=== PATIENT | male | born 1980 | race Two or more races ===

== ENCOUNTER 2023-01-13 16:18 | Inpatient (IN) | payer MEDICAID, OTHER ==
[~2023-01-13] VITALS: Ht 172.7 cm; Wt 104.0 kg
[2023-01-13] MEDS ORDERED: SODIUM CHLORIDE 0.9% 2,000 ML IV ONE (17:00)
[2023-01-13 18:35] LABS: BUN/Creatinine Ratio 11.5; Potassium 4.9 mmol/L (3.5-5.1)
[2023-01-13 18:38] LABS: Lactic Acid w/Reflex 4.1 mmol/L (0.4-2.0)
[2023-01-13 18:38] LABS: Bilirubin, Total 2.4 mg/dL (0.2-1.0); Total Protein 6.7 g/dL (6.4-8.2)
[2023-01-13 18:57] LABS: Hematocrit 46.8 % (41.0-53.0); Hemoglobin 15.4 g/dL (13.5-17.5); Mean Corpuscular Hemoglobin 28.6 pg (28.0-32.0); Mean Corpuscular Hgb Conc. 32.9 g/dL (32.0-36.0); Mean Corpuscular Volume 86.9 fL (80.0-100.0); Red Blood Cells 5.39 10^6/uL (4.5-5.90); Red Cell Distribution Width 13.8 % (11.8-14.3)
[2023-01-13 19:01] LABS: Basophils % (manual) 0 (0.0-2.0); Blast Cells 0; Eosinophils % (manual) 0 (0-7); Metamyelocytes % 0; Myelocytes % 0; Promyelocytes % 0; Reactive Lymphocytes 0
[2023-01-13 19:10] LABS: INR 1.17 (0.9-1.15); Partial Thromboplastin Time 31.1 sec (24.6-33.4)
[2023-01-13 19:26] LABS: Band Neutrophils % (manual) 34; Lymphocytes % (manual) 3 (10.0-50.0); Monocytes % (manual) 8 (0-12)
[2023-01-13] MEDS ORDERED: PIPERACILLIN-TAZOB 3.375GM 100 ML IV ONE (19:45)
[2023-01-13] MEDS ORDERED: PANTOPRAZOLE 40 MG/10 ML VIAL INJ IV ONE (20:30)
[2023-01-13] MEDS ORDERED: MORPHINE SULFATE INJ 2 MG/ml SYRG IV PRN (20:30)
[2023-01-13] MEDS ORDERED: ONDANSETRON HCL 4 MG/2 ML VIAL IV PRN (20:30)
[2023-01-13] MEDS ORDERED: NITROGLYCERIN 0.4 MG SL TAB SL PRN (20:30)
[2023-01-13] MEDS ORDERED: SODIUM CHLORIDE 0.9% 1,000 ML IV ONE (20:30)
[2023-01-13 21:01] LABS: Cholesterol 99 mg/dL (< 200); Triglycerides 46 mg/dL (< 150)
[2023-01-13 21:04] LABS: HDL Cholesterol 62 mg/dL (40-59); LDL Cholesterol 35 mg/dL (< 100)
[2023-01-13] MEDS: HEPARIN SODIUM (PORCINE) 5000 UNITS/ML 1ML VIAL SC SCH (21:57)
[2023-01-13] MEDS: SODIUM CHLORIDE 0.9% 1,000 ML IV SCH (23:45)
[2023-01-14] MEDS ORDERED: ACETAMINOPHEN 325 MG TAB PO PRN (01:45)
[2023-01-14 03:22] LABS: Urine Bacteria NONE SEEN /hpf (None Seen); Urine Blood Negative /uL (Negative); Urine Hyaline Cast FEW /lpf (0 - 2); Urine Specific Gravity 1.021 (1.001-1.035); Urine WBC 30 /hpf (0 - 3)
[2023-01-14 03:33] LABS: Alcohol, Urine < 3.0 mg/dL (0-10); Amphetamine Screen, Urine POSITIVE (NEGATIVE); Barbiturate Scree,Urine NEGATIVE (NEGATIVE); Benzodiazephine Screen, Urine NEGATIVE (NEGATIVE); Cannabinoid Screen, Urine NEGATIVE (NEGATIVE); Cocaine Screen, Urine NEGATIVE (NEGATIVE)
[2023-01-14 03:41] LABS: Opiate Scree,Urine NEGATIVE (NEGATIVE); Phencyclidine Screen, Urine NEGATIVE (NEGATIVE)
[2023-01-14 05:48] LABS: Basophils # (auto) 0 10 ^3/uL (0-0.2); Basophils % (auto) 0.1 % (0.0-2.0); Eosinophils # (auto) 0 10 ^3/uL (0-0.8); Hematocrit 38.4 % (41.0-53.0); Hemoglobin 12.8 g/dL (13.5-17.5); Lymphocytes # (auto) 1.3 10 ^3/uL (0.4-5.4); Mean Corpuscular Hemoglobin 28.8 pg (28.0-32.0); Mean Corpuscular Hgb Conc. 33.4 g/dL (32.0-36.0); Mean Corpuscular Volume 86.4 fL (80.0-100.0); Monocytes % (auto) 4.3 % (0.0-12.0); Neutrophils # (auto) 19.8 10 ^3/uL (1.6-8.6); Neutrophils % (auto) 89.6 % (37.0-80.0); Red Blood Cells 4.44 10^6/uL (4.5-5.90); Red Cell Distribution Width 13.3 % (11.8-14.3); White Blood Cell 22.1 10^3/uL (4.4-10.8)
[2023-01-14 05:54] LABS: Albumin 2.2 g/dL (3.4-5.0); Calcium 7.2 mg/dL (8.5-10.1); Potassium 4.2 mmol/L (3.5-5.1)
[2023-01-14 05:59] LABS: BUN/Creatinine Ratio 17.3; Bilirubin, Total 1.2 mg/dL (0.2-1.0); Total Protein 5.9 g/dL (6.4-8.2)
[2023-01-14] MEDS ORDERED: VANCOMYCIN PER PHARMACY 0 MG IV SCH (09:00)
[2023-01-14 09:16] VITALS: BP 92/52
[2023-01-14] MEDS ORDERED: PANTOPRAZOLE 40 MG/10 ML VIAL INJ IV SCH (10:00)
[2023-01-14] MEDS ORDERED: VANCOMYCIN 1GM/250ML 250 ML IV ONE (10:00)
[2023-01-14 10:36] LABS: Protein, Urine 47.2 mg/dL (0.0-11.9)
[2023-01-14] MEDS: HEPARIN SODIUM (PORCINE) 5000 UNITS/ML 1ML VIAL SC SCH (11:44)
[2023-01-14] MEDS ORDERED: PIPERACILLIN-TAZOB 3.375GM 100 ML IV SCH (14:00)
[2023-01-14] MEDS: SODIUM CHLORIDE 0.9% 1,000 ML IV SCH (16:36)
[2023-01-14] MEDS ORDERED: levoFLOXacin 500MG 100 ML IV SCH (18:15)
[2023-01-14] MEDS ORDERED: SODIUM CHLORIDE 0.9% 1,000 ML IV ONE (18:15)
[2023-01-14] MEDS ORDERED: VANCOMYCIN 1GM/250ML 250 ML IV SCH (22:00)
[2023-01-15 11:04] LABS: Hepatitis A Ab IgM Negative; Hepatitis C Antibody Negative (Negative)
[2023-01-15 11:05] LABS: Hepatitis B Core IgM Negative
== END 2023-01-14 17:49 | disposition left against medical advice (07) | DRG 720 ==
LOC: ER 16:18 → EDBD 16:18 → TELE 20:25
PROVIDERS: ADMIT Nurse Practitioner Family; ATTEND Internal Medicine
DX: A41.9 Sepsis, unspecified organism (principal); N17.0 Acute kidney failure with tubular necrosis; R65.21 Severe sepsis with septic shock; E46 Unspecified protein-calorie malnutrition; J18.9 Pneumonia, unspecified organism; E83.51 Hypocalcemia; E88.09 Other disorders of plasma-protein metabolism, not elsewhere classified; Z20.822 Contact with and (suspected) exposure to COVID-19; N17.9 Acute kidney failure, unspecified; E66.01 Morbid (severe) obesity due to excess calories; E86.0 Dehydration; N39.0 Urinary tract infection, site not specified; F15.10 Other stimulant abuse, uncomplicated; Z53.29 Procedure and treatment not carried out because of patient's decision for other reasons; Z68.34 Body mass index [BMI] 34.0-34.9, adult; Z82.3 Family history of stroke; Z82.49 Family history of ischemic heart disease and other diseases of the circulatory system
CPT/HCPCS: 36415; 71045; 74176; 76775; 78582; 80053; 80061; 80074; 80307; 81001; 82306; 82570; 83036; 83605; 83690; 83735; 83880; 83970; 84100; 84156; 84300; 84443; 84484; 85007; 85025; 85027; 85379; 85610; 85652; 85730; 87040; 87426; 87804; 93005; 96361; 96365; 96366; 96367; 96375; 96376; C9113; G0378; J2543

== ENCOUNTER 2025-08-22 08:04 | Inpatient (IN) | payer MEDICAID ==
[~2025-08-22] VITALS: Ht 175.3 cm; Wt 121.5 kg
--- NOTE | 2025-08-22 08:25 | ECG ---
[facility] Test Date: 2025-08-22 Test Time: 08:14:03 Pat Name: ADITYA ANDREW Department: ED Room: [address] [place] [address] Gender: M Subacute Nurse: SANDRA : 1980 Requested By: RYAN TEAGUE Order Number: [id number] Reading MD: Nic Aguilar Measurements Intervals [place] Rate: 116 P: 73 VT: 151 QRS: -96 QRSD: 139 T: -6 QT: 317 QTc: 441 Interpretive Statements Sinus tachycardia RBBB and LAFB Electronically Signed On 08-22-2025 15:45:15 PDT by Nic Aguilar Please click the below link to view image of tracing.
[2025-08-22 08:47] LABS: Hematocrit 46.0 % (41.0-53.0); Hemoglobin 15.4 g/dL (13.5-17.5); Mean Corpuscular Hemoglobin 28.2 pg (28.0-32.0); Mean Corpuscular Volume 84.2 fL (80.0-100.0); Nucleated Red Blood Cells % 0.1 %
--- NOTE | 2025-08-22 08:50 | ED.PDOC ---
History of Present Illness HPI Comments 45-YEAR-OLD MALE PRESENTS TO THE ER WITH A CHIEF COMPLAINT OF CHEST PAIN/SHORTNESS A BREATH. PATIENT REPORTS ON HAVING USED METH 8 HOURS AGO AND HAD AN ONSET SYMPTOMS OF CHEST PAIN, SHORTNESS A BREATH, DIZZINESS. DENIES CHILLS, FEVER, N/V/D. NO OTHER ASSOCIATED SYMPTOMS, MODIFIERS, RECENT INJURIES OR SICK CONTACTS PRESENT AT THIS TIME. Chief Complaint: Shortness of Breath Time Seen by MD: 08:30 Primary Care Provider: NONE Reviewed Notes: Nurses Notes, Medications, Allergies Allergies: Coded Allergies: NO KNOWN ALLERGIES (Unverified , 11/14/12) Home Meds No Active Prescriptions or Reported Meds Information Source: Patient Mode of Arrival: Ambulatory Severity: Moderate Timing: Hours Duration: Since onset Prehospital treatment: None Past Medical History PAST MEDICAL HISTORY: Denies Surgical History: Denies all surgeries Family History Family History: Reviewed,noncontributory to illness, Unknown Social History Smoker: Non-Smoker Alcohol: Denies ETOH Use Drugs: Methamphetamine Lives In: Home Constitutional: denies: chills, diaphoresis, fatigue, fever, malaise, sweats, weakness, others EENTM: denies: blurred vision, double vision, ear bleeding, ear discharge, ear drainage, ear pain, ear ringing, eye pain, eye redness, hearing loss, mouth pain, mouth swelling, nasal discharge, nose bleeding, nose congestion, nose pain, photophobia, tearing, throat pain, throat swelling, voice changes, others Respiratory: reports: shortness of breath; denies: cough, hemoptysis, orthopnea, SOB at rest, SOB with excertion, stridor, wheezing, others Cardiovascular: reports: chest pain; denies: dizzy spells, diaphoresis, Dyspnea on exertion, edema, irregular heart beat, left arm pain, lightheadedness, palpitations, PND, syncope, others Gastrointestinal: denies: abdomen distended, abdominal pain, blood streaked bowels, constipated, diarrhea, dysphagia, difficulty swallowing, hematemesis, melena, nausea, poor appetite, poor fluid intake, rectal bleeding, rectal pain, vomiting, others Genitourinary: denies: burning, dysuria, flank pain, frequency, hematuria, incontinence, penile discharge, penile sore, pain, testicle pain, testicle swelling, urgency, others Neurological: reports: dizziness; denies: fainting, headache, left sided numbness, left sided weakness, numbness, paresthesia, pre-existing deficit, rig ht sided numbness, right sided weakness, seizure, speech problems, tingling, tremors, weakness, others Musculoskeletal: denies: back pain, gout, joint pain, joint swelling, muscle pain, muscle stiffness, neck pain, others Integumetry: denies: bruises, change in color, change in hair/nails, dryness, laceration, lesions, lumps, rash, wounds, others Allergic/Immunocompromised: denies: Difficulty Healing, Frequent Infections, Hives, Itching, others Hematologic/Lymphatic: denies: anemia, blood clots, easy bleeding, easy bruising, swollen glands, others Endocrine: denies: excessive hunger, excessive sweating, excessive thirst, excessive urination, flushing, intolerance to cold, intolerance to heat, unexplained weight gain, unexplained weight loss, others Psychiatric: denies: anxiety, bipolar disorder, depression, hopeless, panic disorder, schizophrenia, sleepless, suicidal, others All Other Systems: Reviewed and Negative Physical Exam General Appearance: No Apparent Distress, Normal HEENT: Normal ENT Inspection, Pharynx Normal, TMs Normal Neck: Full Range of Motion, Non-Tender, Normal, Normal Inspection Respiratory: Chest Non-Tender, Lungs Clear, No Accessory Muscle Use, No Respiratory Distress, Normal Breath Sounds Cardiovascular: No Edema, No JVD, No Murmur, No Gallop, Normal Peripheral Pulses, Regular Rate/Rhythm Breast Exam: Deferred Gastrointestinal: No Organomegaly, Non Tender, No Pulsatile Mass, Normal Bowel Sounds, Soft Genitalia: Deferred Pelvic: Deferred Rectal: Deferred Extremities: No calf tenderness, Normal capillary refill, Normal inspection, Normal range of motion, Non-tender, No pedal edema Musculoskeletal : Apperance: Normal Neurologic: Alert, shuttle operator II-XII nml as Tested, No Motor Deficits, Normal Affect, Normal Mood, No Sensory Deficits Cerebellar Function: Normal Reflexes: Normal Skin: Dry, Normal Color, Warm Lymphatic: No Adenopathy Was a procedure done? Was a procedure done?: No EKG EKG : Pulse Rate (adult): 116 [place]: Normal Cardiac Rhythm: ST Block: None Hypertrophy: None ST: Normal Differential Dx Considerations may include: ACS, CVA, polysubstance abuse, viral syndrome, pneumonia X-Ray, Labs, Meds, VS Vital Signs Date Time Temp Pulse Resp B/P (MAP) Pulse Ox O2 Delivery O2 Flow Rate FiO2 08/22/25 10:42 112 18 108/73 (85) 92 08/22/25 09:29 111 08/22/25 09:29 111 08/22/25 08:54 113 22 93 Room Air* 0 21 08/22/25 08:53 98.1 113 22 105/73 (84) 93 98.1 08/22/25 08:14 116 08/22/25 08:06 97.5 120 25 133/67 96 97.5 Lab Test 08/22/25 09:36 08/22/25 08:33 Range/Units Troponin I High Sensitivity 598 *H 532 *H </=54 ng/L White Blood Count 11.9 H 4.4-10.8 10^3/uL Red Blood Count 5.46 4.5-5.90 10^6/uL Hemoglobin 15.4 13.5-17.5 g/dL Hematocrit 46.0 41.0-53.0 % Mean Corpuscular Volume 84.2 80.0-100.0 fL Mean Corpuscular Hemoglobin 28.2 28.0-32.0 pg Mean Corpuscular Hemoglobin Concent 33.5 32.0-36.0 g/dL Red Cell Distribution Width 13.9 11.8-14.3 % Platelet Count 250 140-450 10^3/uL Mean Platelet Volume 7.5 6.9-10.8 fL Neutrophils (%) (Auto) 75.7 37.0-80.0 % Lymphocytes (%) (Auto) 15.8 10.0-50.0 % Monocytes (%) (Auto) 6.4 0.0-12.0 % Eosinophils (%) (Auto) 1.6 0.0-7.0 % Basophils (%) (Auto) 0.5 0.0-2.0 % Neutrophils # (Auto) 9.0 H 1.6-8.6 10 ^3/uL Lymphocytes # (Auto) 1.9 0.4-5.4 10 ^3/uL Monocytes # (Auto) 0.8 0-1.3 10 ^3/uL Eosinophils # (Auto) 0.2 0-0.8 10 ^3/uL Basophils # (Auto) 0.1 0-0.2 10 ^3/uL Nucleated Red Blood Cells 0.1 % Sodium Level 139 136-145 mmol/L Potassium Level 4.3 3.5-5.1 mmol/L Chloride Level 103 98-107 mmol/L Carbon Dioxide Level 26 20-31 mmol/L Anion Gap 10 5-15 Blood Urea Nitrogen 15 9-23 mg/dL Creatinine 1.38 H 0.700-1.30 mg/dL Glomerular Filtration Rate Calc 65 >90 mL/min BUN/Creatinine Ratio 10.9 10.0-20.0 Serum Glucose 201 H 74-106 mg/dL Calcium Level 9.0 8.7-10.4 mg/dL Time of 1ST Reevaluation: 09:00 Reevaluation 1ST: Unchanged Patient Education/Counseling: Diagnosis, Treatment, Prognosis Family Education/Counseling: No Family Present SEPSIS Sepsis Screen Date sepsis recognized/suspect: Aug 22, 2025 Time Sepsis recognized/suspect: 08 Recent Procedure: No On Antibiotic Therapy: No Respiratory Rate >20: Yes Heart Rate >90: Yes Temp<36 C (96.8 F) or >38.3 C: No SBP <90 or MAP <65 mmHG: No New Acute Mental Status Change: No Is the patient on CPAP, BIPAP,: No Physician Orders Urinalysis (08/22/25 08:26) Chest Portable (08/22/25 08:26) Troponin-I Hs (08/22/25 11:26) Electrocardigram (08/22/25 09:26) Electrocardigram (08/22/25 11:26) Vital Signs Date Time Temp Pulse Resp B/P (MAP) Pulse Ox O2 Delivery O2 Flow Rate FiO2 08/22/25 10:42 112 18 108/73 (85) 92 08/22/25 09:29 111 08/22/25 09:29 111 08/22/25 08:54 113 22 93 Room Air* 0 21 08/22/25 08:53 98.1 113 22 105/73 (84) 93 98.1 08/22/25 08:14 116 08/22/25 08:06 97.5 120 25 133/67 96 97.5 Laboratory Tests Test 08/22/25 08:33 White Blood Count 11.9 10^3/uL (4.4-10.8) H Departure 1 Departure Time of Disposition: 10:15 (Patient presented with chest pain that was concerning for possible STEMI, ACS, PE, Pneumonia, Muscle Strain, COPD, Dissection. Data: 1. I ordered and reviewed the result of at least 3 labs including a CBC, BMP, and Troponin. 2. I independently interpreted the following tests: EKG which shows sinus rhythm a and Chest X-ray which shows benign chest.Risk:This patient has a high risk of morbidity due to further diagnostic testing or treatment and may suffer from an acute cardiac or respiratory disorder. Workup reveals concern for ACS and patient should be admitted for further workup and possible expert consultation. ) Impression: Primary Impression: Acute chest pain Additional Impressions: Elevated troponin Polysubstance abuse Disposition: ADMITTED INPATIENT Admit to: Med Surg Condition: Serious e-Prescriptions No Active Prescriptions or Reported Meds Critical Care Note Critical Care Time?: Yes Critical care comment: Acute chest pain Authorized and Performed by: Ryan Crystal MD Total critical care time: Approximately 38 minutes Due to a high probability of clinically significant, life threatening deterioration, the patient required my highest level of preparedness to intervene emergently and I personally spent this critical care time directly and personally managing the patient. This critical care time included obtaining a hi story; examining the patient; pulse oximetry; ordering and review of studies; arranging urgent treatment with development of a management plan; evaluation of patient's response to treatment; frequent reassessment; and, discussions with other providers. This critical care time was performed to assess and manage the high probability of imminent, life-threatening deterioration that could result in multi-organ failure. It was exclusive of separately billable procedures and treating other patients and teaching time. Please see my other sections and the rest of the note for further information on patient assessment and treatment. Stability Stability form required: No I personally scribed for RYAN CRYSTAL MD ([email or web address]) on 08/22/25 at 08:50. Electronically submitted by Joselito Garrido (RoundarchA). I personally scribed for RYAN CRYSTAL MD ([email or web address]) on 08/22/25 at 08:51. Electronically submitted by Joselito Garrido ([employer]arch[employer]). RYAN CRYSTAL MD Aug 22, 2025 08:50
[2025-08-22 08:54] VITALS: PULSE 113; RESP 22; O2SAT 93
[2025-08-22 08:59] LABS: Anion Gap 10 (5-15); Carbon Dioxide 26 mmol/L (20-31); Chloride 103 mmol/L (98-107); Potassium 4.3 mmol/L (3.5-5.1); Sodium 139 mmol/L (136-145)
[2025-08-22 09:00] LABS: Calcium 9.0 mg/dL (8.7-10.4)
--- NOTE | 2025-08-22 09:04 | DVH ---
EXAM: XY CHEST PORTABLE Indication: cp Technique: Single frontal view of the chest was obtained Comparison: CHEST PORTABLE on DOS: 01/13/23, CXRP on DOS: 01/13/23 FINDINGS: Lines and Tubes: None Lungs: No focal consolidation. Pleura: No effusion. No pneumothorax. Cardiomediastinal contours: Unremarkable Bones: No acute osseous abnormality. IMPRESSION: No acute cardiopulmonary disease.
[2025-08-22 09:05] LABS: BUN/Creatinine Ratio 10.9 (10.0-20.0); Blood Urea Nitrogen 15 mg/dL (9-23); Glucose 201 mg/dL (74-106)
--- NOTE | 2025-08-22 09:30 | ECG ---
[facility] Test Date: 2025-08-22 Test Time: 09:29:28 Pat Name: ADITYA ANDREW Department: Room: [address] [place] [address] Gender: M [place]aere: JANELLE : 1980 Requested By: RYAN TEAGUE Order Number: [id number] Reading MD: Nic Aguilar Measurements Intervals [place] Rate: 111 P: 48 [place]: 144 QRS: -95 QRSD: 139 T: -12 QT: 350 QTc: 476 Interpretive Statements Sinus tachycardia RBBB and LAFB Minimal ST elevation, lateral leads Electronically Signed On 08-22-2025 16:39:43 PDT by Nic Aguilar Please click the below link to view image of tracing.
[2025-08-22] MEDS ORDERED: ONDANSETRON HCL 4 MG/2 ML VIAL IV PRN (11:15)
[2025-08-22] MEDS ORDERED: DOCUSATE SOD 100 MG CAP PO PRN (11:15)
[2025-08-22] MEDS ORDERED: MORPHINE SULFATE INJ 2 MG/ml SYRG IV PRN (11:15)
[2025-08-22] MEDS ORDERED: NITROGLYCERIN 0.4 MG SL TAB SL PRN (11:15)
[2025-08-22] MEDS ORDERED: HYDROcodone-ACET 5/325MG TAB PO PRN (11:15)
--- NOTE | 2025-08-22 11:22 | DVHHP2 ---
History of Present Illness Reason for Visit: Chest pain, shortness of breath History of Present Illness Yrn Ricks is a 45-year-old male with no significant past medical history other than methamphetamine abuse, who came to the hospital for chest pain and shortness of breath. Patient states he uses methamphetamines about every other day. He states he smoked some last night, began experiencing chest pain that he describes as a pressure with associated shortness of breath about 0400. He called EMS, was evaluated and told everything looked good, but to go to the ER if his symptoms worsened. His symptoms continued prompting him to come to the ER about 0700. He states the left side of his chest hurts when he takes a deep breath. In ER his troponin was elevated and subsequent troponin levels continue to elevate. ECHO and cardiology consult was ordered. On assessment respiratory rate was in the 30's, patient was requiring oxygen at 2L N/C and only saturating at 90-92%. He denies any past history of asthma or COPD. Given his presentation I ordered a D-dimer, then CT angio of chest to R/O PE. CT Angio revealed large saddle PE with right heart strain. Will consult IR for possible thrombectomy and start anticoagulation. Past Surgical History: None Smoke: No ALCOHOL: none Drugs: Other (Methamphetamine) Lives: with Family Domestic Violence: Neg Review of Systems Constitutional: No: Fever, Chills, Sweats, Weakness, Malaise, Other Eyes: No: Pain, Vision change, Conjunctivae inflammation, Eyelid inflammation, Other, Redness ENT: No: Ear pain, Ear discharge, Nose pain, Nose discharge, Nose congestion, Mouth pain, Mouth swelling, Throat pain, Throat swelling, Other Respiratory: Shortness of breath, SOB with excertion; No: Cough, Dry, Wheezing, Hemoptysis, Pleuritic Pain, Sputum, Wheezing, Other Cardiovascular: Chest Pain (pressure); No: Palpitations, Orthopnea, Paroxysmal Noc. Dyspnea, Edema, Lt Headedness, Other Gastrointestinal: No: Nausea, Vomiting, Abdominal Pain, Diarrhea, Constipation, Melena, Hematochezia, Other Genitourinary: No Dysuria, No Frequency, No Incontinence, No Hematuria, No Retention, No Other Musculoskeletal: No: other, neck pain, shoulder pain, arm pain, back pain, hand pain, leg pain, foot pain Skin: No: Rash, Lesions, Jaundice, Bruising, Other Neurological: No: Weakness, Numbness, Incoordination, Change in speech, Confusion, Seizures, Other Allergies: Coded Allergies: NO KNOWN ALLERGIES (Unverified , 11/14/12) Exam Vital Signs Vital Signs Date Time Temp Pulse Resp B/P (MAP) Pulse Ox O2 Delivery O2 Flow Rate FiO2 08/22/25 10:42 112 18 108/73 (85) 92 08/22/25 08:54 Room Air* 0 21 08/22/25 08:53 98.1 98.1 General Appearance: Alert, Oriented X3, Cooperative, moderate distress HEENT: Atraumatic, PERRLA Respiratory: Other (Diminshed breath sounds, worse on left side) Cardiovascular: Other (ST) Abdominal: Normal bowel sounds, Soft, No tenderness Extremities: No clubbing, No cyanosis, Other (bilateral lower extremity edema) Skin: No rashes, No breakdown, No significant lesion Neuro: Normal gait, Normal speech, Strength at 5/5 X4 ext Psych/Mental Status: Mental status NL, Mood NL Labs/Xrays Labs Test 08/22/25 09:36 08/22/25 08:33 Range/Units Troponin I High Sensitivity 598 *H </=54 ng/L White Blood Count 11.9 H 4.4-10.8 10^3/uL Red Blood Count 5.46 4.5-5.90 10^6/uL Hemoglobin 15.4 13.5-17.5 g/dL Hematocrit 46.0 41.0-53.0 % Mean Corpuscular Volume 84.2 80.0-100.0 fL Mean Corpuscular Hemoglobin 28.2 28.0-32.0 pg Mean Corpuscular Hemoglobin Concent 33.5 32.0-36.0 g/dL Red Cell Distribution Width 13.9 11.8-14.3 % Platelet Count 250 140-450 10^3/uL Mean Platelet Volume 7.5 6.9-10.8 fL Neutrophils (%) (Auto) 75.7 37.0-80.0 % Lymphocytes (%) (Auto) 15.8 10.0-50.0 % Monocytes (%) (Auto) 6.4 0.0-12.0 % Eosinophils (%) (Auto) 1.6 0.0-7.0 % Basophils (%) (Auto) 0.5 0.0-2.0 % Neutrophils # (Auto) 9.0 H 1.6-8.6 10 ^3/uL Lymphocytes # (Auto) 1.9 0.4-5.4 10 ^3/uL Monocytes # (Auto) 0.8 0-1.3 10 ^3/uL Eosinophils # (Auto) 0.2 0-0.8 10 ^3/uL Basophils # (Auto) 0.1 0-0.2 10 ^3/uL Nucleated Red Blood Cells 0.1 % Sodium Level 139 136-145 mmol/L Potassium Level 4.3 3.5-5.1 mmol/L Chloride Level 103 98-107 mmol/L Carbon Dioxide Level 26 20-31 mmol/L Anion Gap 10 5-15 Blood Urea Nitrogen 15 9-23 mg/dL Creatinine 1.38 H 0.700-1.30 mg/dL Glomerular Filtration Rate Calc 65 >90 mL/min BUN/Creatinine Ratio 10.9 10.0-20.0 Serum Glucose 201 H 74-106 mg/dL Calcium Level 9.0 8.7-10.4 mg/dL EXAM: XY CHEST PORTABLE FINDINGS: Lines and Tubes: None Lungs: No focal consolidation. Pleura: No effusion. No pneumothorax. Cardiomediastinal contours: Unremarkable Bones: No acute osseous abnormality. IMPRESSION: No acute cardiopulmonary disease. CTA Chest with intravenous contrast INDICATION: R/O PE, elevated D-dimer Findings: Pulmonary artery: Large volume saddle pulmonary embolism is present involving main, right, left segmental and subsegmental pulmonary artery branches. Lower neck: Normal thyroid. Lungs: Ground-glass airspace disease is present in the left upper lobe and right lung base. Heart/Vascular Structures: Significant right heart strain is present. Recommend correlation with echocardiogram. Lymph Nodes: No adenopathy Pleura: No pleural effusion or significant pneumothorax. Musculoskeletal: No acute osseous abnormality. Degenerative changes of the spine. Soft tissues: Normal. Upper abdomen: Limited portions of the upper abdomen are unremarkable. IMPRESSION: Large volume saddle pulmonary embolism is present involving main, right, left segmental and subsegmental pulmonary artery branches. Significant right heart strain is present. Recommend correlation with echocardiogram. Ground-glass airspace disease is present in the left upper lobe and right lung base. SEPSIS Sepsis Screen Date sepsis recognized/suspect: Aug 22, 2025 Time Sepsis recognized/suspect: 1033 Recent Procedure: No On Antibiotic Therapy: No Respiratory Rate >20: No Heart Rate >90: Yes Temp<36 C (96.8 F) or >38.3 C: No SBP <90 or MAP <65 mmHG: No New Acute Mental Status Change: No Is the patient on CPAP, BIPAP,: No Physician Orders Urinalysis (08/22/25 08:26) Chest Portable (08/22/25 08:26) Troponin-I Hs (08/22/25 11:26) Electrocardigram (08/22/25 09:26) Electrocardigram (08/22/25 11:26) D-Dimer (08/22/25 11:13) Admit (08/22/25 11:13) Code Status (08/22/25 11:13) Hydrocodone-Acet 5/325mg Tab ([place] 5/32 (08/22/25 11:15) Ondansetron Hcl (Zofran) (08/22/25 11:15) Docusate Sodium Capsule (Colace Capsule) (08/22/25 11:15) Vital Signs Date Time Temp Pulse Resp B/P (MAP) Pulse Ox O2 Delivery O2 Flow Rate FiO2 08/22/25 10:42 112 18 108/73 (85) 92 08/22/25 09:29 111 08/22/25 09:29 111 08/22/25 08:54 113 22 93 Room Air* 0 21 08/22/25 08:53 98.1 113 22 105/73 (84) 93 98.1 08/22/25 08:14 116 08/22/25 08:06 97.5 120 25 133/67 96 97.5 Laboratory Tests Test 08/22/25 08:33 White Blood Count 11.9 10^3/uL (4.4-10.8) H Assessment/Plan Assessment/Plan Assessment: Elevated troponin, Illicit drug use, Acute hypoxic respiratory failure, Saddle PE, DVT, Plan: Admit to Tele, Cardiology consult, D-dimer, ECHO, CT angio of chest, Supplemental oxygen as needed, Heparin drip, Interventional radiology consult, NPO after midnight, Plan discussed with: Patient My Orders Orders - OUMAR LOPEZ Procedure Category Date Status Time D-Dimer LAB 08/22/25 Logged 11:13 Admit ADMIT 08/22/25 Verified 11:13 Code Status CODE 08/22/25 Verified 11:13 Hydrocodone-Acet PHA 08/22/25 Verified 5/325mg Tab ([place] 11:15 Ondansetron Hcl PHA 08/22/25 Verified (Zofran) 11:15 Docusate Sodium PHA 08/22/25 Verified Capsule (Colace 11:15 Date of Service: Aug 22, 2025 Billing Provider: OUMAR LOPEZ Common Visit Codes: [id number] INP/OBS CARE (HIGH) OUMAR LOPEZ Aug 22, 2025 11:22
--- NOTE | 2025-08-22 11:34 | ECG ---
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
[2025-08-22] MEDS: IOHEXOL 350 MG/ML 100ML IJ ONE (13:08)
[2025-08-22 14:39] LABS: INR 1.01 (0.9-1.15); Partial Thromboplastin Time 29.4 SEC (24.5-34.5); Prothrombin Time 10.7 sec (9.3-11.8)
--- NOTE | 2025-08-22 14:40 | DVH ---
CTA Chest with intravenous contrast INDICATION: R/O PE, elevated D-dimer COMPARISON: US ECHO 2D MODE CARDIAC DOP on DOS: 08/22/25, XY CHEST PORTABLE on DOS: 08/22/25, CHEST POR TABLE on DOS: 01/13/23, CXRP on DOS: 01/13/23 TECHNIQUE: Multidetector spiral CTA of the chest was performed of the chest with intravenous contrast . PULMONARY ANGIOGRAPHY PROTOCOL was utilized using a bolus-tracking technique centered on the main p ulmonary artery. Axial, coronal and sagittal multiplanar and MIP reformats were performed. Radiation Dose : 1. Chest: CTDI volume is 27.74 mGy. Dose-length product is 961.92 mGy*cm The dose indicators for CT are the volume Computed Tomography (CT) Dose Index (CTDIvol) and the Dose Length Product (DLP), and are measured in units of mGy and mGy-cm, respectively. These indicators are not patient dose, but values generated from the CT scanner acquisition factors. The report includes radiation exposure data for exposures received during this examination. Findings: Pulmonary artery: Large volume saddle pulmonary embolism is present involving main, right, left segmental and subsegmen roxane pulmonary artery branches. Lower neck: Normal thyroid. Lungs: Ground-glass airspace disease is present in the left upper lobe and right lung base. Heart/Vascular Structures: Significant right heart strain is present. Recommend correlation with ech ocardiogram. Lymph Nodes: No adenopathy Pleura: No pleural effusion or significant pneumothorax. Musculoskeletal: No acute osseous abnormality. Degenerative changes of the spine. Soft tissues: Normal. Upper abdomen: Limited portions of the upper abdomen are unremarkable. IMPRESSION: Large volume saddle pulmonary embolism is present involving main, right, left segmental and subsegmen roxane pulmonary artery branches. Significant right heart strain is present. Recommend correlation with echocardiogram. Ground-glass airspace disease is present in the left upper lobe and right lung base. Critical Result: Pumonary Emboli Findings discussed with Dr. Crystal at 08/22/2025 02:37 PM, and acknowledged receipt and understanding of the findings.
[2025-08-22] MEDS: SODIUM CHLORIDE 0.9% 1,000 ML IV SCH (15:08)
[2025-08-22] MEDS: HEPARIN SODIUM (PORCINE) 5000 UNITS/ML 1ML VIAL IV ONE (15:25)
[2025-08-22] MEDS: HEPARIN DRIP/D5W 100UNITS/ML 250 ML IV SCH (15:34)
--- NOTE | 2025-08-22 15:40 | DVHINCON2 ---
Date Seen: Aug 22, 2025 Referring Physician ASHLEY Coronel Reason for Consultation Elevated troponin levels History of Present Illness This is a 45-year-old man who presented to the emergency room with a chief complaint of shortness of breath since this morning. The patient reports he awoke with shortness of breath and left-sided chest pain described as soreness like feeling. He underwent a CT angiogram with contrast revealing a large volume saddle pulmonary embolism involving the main, right, left segmental and subsegmental pulmonary artery branches with right heart strain association. The patient denies any recent travel. 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 Denies a previous history of venous thromboembolism. Family history includes mother with history of lower extremity DVT. He has never followed up with a PCP. Admits to methamphetamine use with latest intake last night. Past Medical History Past medical history reviewed. No other significant than mentioned above. Past Surgical History Denies any past surgical history. Family History Family history reviewed. Significant for mother with a history of DVT. Social History Denies the use of alcohol, or tobacco use. Admits to methamphetamine use for approximately seven years with latest intake last night. Allergies: Coded Allergies: NO KNOWN ALLERGIES (Unverified , 11/14/12) Home Meds No Active Prescriptions or Reported Meds Home Meds Denies any home prescribed medications. Current Medications Current Medications Medications (Trade) Dose Ordered Sig/John Route PRN Reason Start Time Stop Time Status Last Admin Acetaminophen/ Hydrocodone Bitart ([place] 5/325MG Tab) 1 tab Q4HP PRN PO MODERATE PAIN (4-6 PAIN SCALE) 08/22/25 11:15 Ondansetron HCl (Zofran) 4 mg Q4HP PRN IV NAUSEA / VOMITING 08/22/25 11:15 Docusate Sodium (Colace Capsule) 100 mg BIDPRN PRN PO FOR CONSTIPATION 08/22/25 11:15 Acetaminophen (Tylenol Tablet) 650 mg Q6HP PRN PO PAIN SCALE 1-3 OR TEMP>100.4 08/22/25 11:15 Nitroglycerin (Ntrostat Sublingual) 0.4 mg Q5MINP PRN SL FOR CHEST PAIN 08/22/25 11:15 Morphine Sulfate 2 mg Q30M PRN IV FOR CHEST PAIN 08/22/25 11:15 Sodium Chloride 1,000 ml @ 50 mls/hr Q20H IV 08/22/25 13:30 Heparin Sodium/ Dextrose 250 ml @ 18.36 mls/ hr [id number] IV 08/22/25 15:00 UNV Review of Systems Constitutional: No symptom reported Ears, Nose, & Throat: No symptom reported Eyes: No symptom reported Neurological: No symptoms reported Pulmonary/Respiratory: SOB Cardiovascular: Chest pain Gastrointestinal: No symptom reported Genitourinary: No symptom reported Musculoskeletal: No symptom reported Skin: No symptom reported Psychiatric: No symptom reported Endocrine: No symptom reported Hemotologic/Lymphatic: No symptom reported Vital Signs Vital Signs Date Time Temp Pulse Resp B/P (MAP) Pulse Ox O2 Delivery O2 Flow Rate FiO2 08/22/25 13:00 100 14 103/53 (70) 97 08/22/25 12:00 97.9 97.9 08/22/25 08:54 Room Air* 0 21 Physical Exam General Appearance: Cooperative. Well developed. Obese. In no acute distress Head Exam: Normal inspection Neck Exam: Normal inspection. Non-tender. Normal alignment Pulmonary/Respiratory: Chest non-tender. Clear bilateral breath sounds. O2 via NC Cardiovascular/Chest: Regular rate and rhythm. S1, S2. Sinus tachycardia with S1Q3T3 pattern. No murmurs. No JVD. Peripheral Pulses: 2+ Radial (R). 2+ Radial (L). 2+ Pedal (R). 2+ Pedal (L) Abdominal Exam: Normal bowel sounds. Soft. Nontender. No hepatospenomegaly. No masses Ankle Exam: Positive ankle nonpitting edema Lower extremities: Positive lower extremity nonpitting edema Neuro/Mental Status: A&O x4. Coherent Thoughts/Psych: Normal thought pattern. Appropriate mood and affect. Good judgement and insight Appearance: In no acute distress Skin Exam: Normal inspection. Normal color. Warm. Dry Labs/Diagnostic Data Labs Test 08/22/25 11:21 08/22/25 08:33 Range/Units Prothrombin Time 10.7 9.3-11.8 sec Prothrombin Time INR 1.01 0.9-1.15 Activated Partial Thromboplast Time 29.4 24.5-34.5 SEC D-Dimer, Quantitative 7.16 H 0.0-0.49 mg/L FEU Troponin I High Sensitivity 784 *H </=54 ng/L White Blood Count 11.9 H 4.4-10.8 10^3/uL Red Blood Count 5.46 4.5-5.90 10^6/uL Hemoglobin 15.4 13.5-17.5 g/dL Hematocrit 46.0 41.0-53.0 % Mean Corpuscular Volume 84.2 80.0-100.0 fL Mean Corpuscular Hemoglobin 28.2 28.0-32.0 pg Mean Corpuscular Hemoglobin Concent 33.5 32.0-36.0 g/dL Red Cell Distribution Width 13.9 11.8-14.3 % Platelet Count 250 140-450 10^3/uL Mean Platelet Volume 7.5 6.9-10.8 fL Neutrophils (%) (Auto) 75.7 37.0-80.0 % Lymphocytes (%) (Auto) 15.8 10.0-50.0 % Monocytes (%) (Auto) 6.4 0.0-12.0 % Eosinophils (%) (Auto) 1.6 0.0-7.0 % Basophils (%) (Auto) 0.5 0.0-2.0 % Neutrophils # (Auto) 9.0 H 1.6-8.6 10 ^3/uL Lymphocytes # (Auto) 1.9 0.4-5.4 10 ^3/uL Monocytes # (Auto) 0.8 0-1.3 10 ^3/uL Eosinophils # (Auto) 0.2 0-0.8 10 ^3/uL Basophils # (Auto) 0.1 0-0.2 10 ^3/uL Nucleated Red Blood Cells 0.1 % Sodium Level 139 136-145 mmol/L Potassium Level 4.3 3.5-5.1 mmol/L Chloride Level 103 98-107 mmol/L Carbon Dioxide Level 26 20-31 mmol/L Anion Gap 10 5-15 Blood Urea Nitrogen 15 9-23 mg/dL Creatinine 1.38 H 0.700-1.30 mg/dL Glomerular Filtration Rate Calc 65 >90 mL/min BUN/Creatinine Ratio 10.9 10.0-20.0 Serum Glucose 201 H 74-106 mg/dL Calcium Level 9.0 8.7-10.4 mg/dL Assessment Saddle PE with RV strain (S1Q3T3 pattern) Pulmonary hypertension secondary to above NSTEMI type 2 secondary to above Rule out lower extremity DVT Rule out hypercoagulability Methamphetamine use Obesity Plan/Recommendation (Dr. Chen) A preliminary transthoracic echocardiogram revealed an optimal LVEF with [id number] pulmonary hypertension including RVSP at [address] Boone (radiologist) offered the patient a pulmonary thrombectomy for which the patient agrees which is tentatively scheduled for 2024. In the meantime, initiate STAT heparin drip for PE per pharmacy protocol. Obtain a lower extremity venous US to rule out DVT as well as an ABG. Follow-up on hypercoagulability panel studies given familial history of VTE and no acquired causes found at this time. Post-interventional procedures, initiate DOAC therapy per PE/DVT protocol. Kindly re-consult if in need of further recommendations. Thank you for allowing us to participate in this patient's care. Please call if you have any questions or concerns. Critical care time: 50 min. This medical document was created using an electronic medical record system with voice recognition software and computerized dictation system. Although this document has been carefully reviewed, there might still be some phonetic and typographical errors. Occasional wrong-word or ``sound-alike substitutions may have occurred due to the inherent limitations of voice recognition software. These areas are purely typographical due to imperfections of the software programs and do not reflect any compromise in the patient's medical care. Please read the chart carefully and recognize, using context, where these substitutions have occurred. Plan discussed with: Patient, Other NYHA Physical activity limitations: NA Date of Service: Aug 22, 2025 Billing Provider: WILLIAM MATOS Cardiology Common Codes: 52916-[id number] CARE 30-74 MIN WILLIAM MATOS Aug 22, 2025 15:39
--- NOTE | 2025-08-22 15:44 | DVH ---
Bilateral lower extremity venous duplex Clinical History: swelling, PE Comparison: None Technique: Duplex Doppler evaluation of the deep venous systems of both lower extremities from the common femora l veins to the popliteal veins including color Doppler and spectral/pulsed waveform analysis was perf ormed. Findings: RIGHT SIDE: The common femoral vein demonstrates appropriate compressibility and waveform variability. There is compressibility/patency of the great saphenous vein at the proximal thigh. The femoral vein demonstrates appropriate compressibility and waveform variability. The deep femoral vein demonstrates appropriate compressibility and waveform variability. The popliteal vein demonstrates incomplete compressibility. There is incomplete compressibility at the tibioperoneal trunk. LEFT SIDE: The common femoral vein demonstrates appropriate compressibility and waveform variability. There is compressibility/patency of the great saphenous vein at the proximal thigh. The femoral vein demonstrates appropriate compressibility and waveform variability. The deep femoral vein demonstrates appropriate compressibility and waveform variability. The popliteal vein demonstrates appropriate compressibility and waveform variability. There is normal compressibility at the tibioperoneal trunk. Impression: Incomplete compressibility of the right popliteal vein and right posterior tibial vein. These critical findings were discussed with nurse Estes by sterile processing technologist at time of exam.
--- NOTE | 2025-08-22 15:47 | CONS ---
Pharmacy Clinical Information: HEPARIN PER PE PROTOCOL: APTT 29.4 08/22 @1121 Heparin bolus of 8200 units verified, drip of 1800 units/hr (18mL/hr) started at 1534. Orders confirmed with ARVIND Leon. Please give Heparin at 1800 units per hour (18mL/hr) starting 08/22 @ 1500 per PRx protocol. PTT scheduled for 08/22 @2130. Please ensure lab drawn on time. CHENCHO LAYNE PHARMACIST Aug 22, 2025 15:46
[2025-08-22 15:48] LABS: Cholesterol 147 mg/dL (< 200)
[2025-08-22 15:52] LABS: HDL Cholesterol 39 mg/dL (40-59); Triglycerides 155 mg/dL (< 150)
--- NOTE | 2025-08-22 16:12 | ECG ---
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
[2025-08-22 16:23] LABS: Base Excess -2.4 mmol/L (-2.0-3.0)
[2025-08-22 16:53] VITALS: O2SAT 96
--- NOTE | 2025-08-22 18:34 | DVHSR ---
APPROVED REPORT EXAM: Two-dimensional and M-mode echocardiogram with Doppler and color Doppler. Blood Pressure: 108/73 mmHg INDICATION Elevated Trop RISK FACTORS Height: 5'8", Weight: 224 DIMENSIONS LVDd4.1 (3.8-5.7cm)LA (2D)3.0 (1.9-4.0cm)Aortic Root3.2 (2.0-3.7cm) LVDs2.9 (2.5-4.0cm)LA (MM) (1.9-4.0cm)Aortic Cusp Exc1.9 (1.5-2.0cm) EF (%) 55.0 (55-70%)Rt. Atrium4.2 (1.9-4.0cm)Asc. Aorta2.7 cm IVSd1.1 (0.7-1.1cm)RV (D) (1.8-2.4cm) PWd0.8 (0.7-1.1cm) Mitral Valve MitralMitral Stenosis E wave0.49m/sMV Mean GR.mmHg A wave0.58m/sMV Peak GR.mmHg E/A ratio0.82D MVAcm2 DECEL [id number] 1/2 Timems Aortic Valve Aortic ValveAortic Stenosis V10.96m/Benedict Mean GR.3mmHg V21.23m/Benedict Peak GR.6mmHg LVOT Diameter2.1 (1.8-2.4cm)Doppler AVA2.70cm2 Tricuspid Valve TR Velocity3.44m/s [id number] Other Information Quality : Technically LimitedRhythm : Technically limited study due to body habitus. Conclusion LV EF IS 65% AND IS NORMAL DYSKINESIS OF IVS MODERATELY DILATED RV MODERATELY SEVERE PULMONARY HYPERTENSION RVSP IS 55 MM OF HG AND IS HIGH GROSSLY NORMAL VALVES NO EFFUSION
[2025-08-22 21:05] VITALS: PULSE 103; RESP 19; O2SAT 95
[2025-08-22 22:15] VITALS: BP 102/71; PULSE 106; RESP 20; TEMP 98.6; O2SAT 100
[2025-08-22 22:54] LABS: INR 1.06 (0.9-1.15); Prothrombin Time 11.2 sec (9.3-11.8)
[2025-08-22 22:55] VITALS: PULSE 106; RESP 17; O2SAT 100
[2025-08-22 22:59] LABS: Partial Thromboplastin Time 105.3 SEC (24.5-34.5)
--- NOTE | 2025-08-22 23:07 | DVHINCON2 ---
Date Seen: Aug 22, 2025 Referring Physician ASHLEY Coronel Reason for Consultation Elevated troponin levels History of Present Illness This is a 45-year-old male who presented to the emergency room with chief complaint of shortness of breath since this morning. The patient reports he awoke with shortness of breath and left-sided chest pain described as soreness like feeling. He underwent a CT angiogram with contrast revealing a large volume saddle pulmonary embolism involving the main, right, left segmental and subsegmental pulmonary artery branches with right heart strain association. The patient denies any recent travel. 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 Denies a previous history of venous thromboembolism. Family history includes mother with history of lower extremity DVT. He has never followed up with a PCP. Admits to methamphetamine use with latest intake last night. Patient was admitted to the hospital. I am asked to consult on this patient. Past Medical History Past medical history reviewed. No other significant than mentioned above. Past Surgical History Denies any past surgical history. Allergies: Coded Allergies: NO KNOWN ALLERGIES (Unverified , 11/14/12) Home Meds No Active Prescriptions or Reported Meds Current Medications Current Medications Medications (Trade) Dose Ordered Sig/John Route PRN Reason Start Time Stop Time Status Last Admin Acetaminophen/ Hydrocodone Bitart ([place] 5/325MG Tab) 1 tab Q4HP PRN PO MODERATE PAIN (4-6 PAIN SCALE) 08/22/25 11:15 Ondansetron HCl (Zofran) 4 mg Q4HP PRN IV NAUSEA / VOMITING 08/22/25 11:15 Docusate Sodium (Colace Capsule) 100 mg BIDPRN PRN PO FOR CONSTIPATION 08/22/25 11:15 Acetaminophen (Tylenol Tablet) 650 mg Q6HP PRN PO PAIN SCALE 1-3 OR TEMP>100.4 08/22/25 11:15 Nitroglycerin (Ntrostat Sublingual) 0.4 mg Q5MINP PRN SL FOR CHEST PAIN 08/22/25 11:15 Morphine Sulfate 2 mg Q30M PRN IV FOR CHEST PAIN 08/22/25 11:15 Sodium Chloride 1,000 ml @ 50 mls/hr Q20H IV 08/22/25 13:30 08/22/25 15:08 Heparin Sodium/ Dextrose 250 ml @ 18 mls/hr [id number] IV 08/22/25 15:00 08/22/25 15:34 Review of Systems Constitutional: No symptom reported Ears, Nose, & Throat: No symptom reported Eyes: No symptom reported Neurological: No symptoms reported Pulmonary/Respiratory: SOB Cardiovascular: Chest pain Gastrointestinal: No symptom reported Genitourinary: No symptom reported Musculoskeletal: No symptom reported Skin: No symptom reported Psychiatric: No symptom reported Endocrine: No symptom reported Hemotologic/Lymphatic: No symptom reported Vital Signs Vital Signs Date Time Temp Pulse Resp B/P (MAP) Pulse Ox O2 Delivery O2 Flow Rate FiO2 08/22/25 22:15 98.6 106 20 102/71 (81) 100 98.6 08/22/25 21:05 Room Air* 8 N/A Oxymizer Physical Exam GENERAL: Alert and oriented x 3. No acute distress. Obese. EYES: PERRL, EOMI. Anicteric. HENT: Moist mucous membranes. LUNGS: Clear to auscultation bilaterally. CARDIOVASCULAR: Regular rate and rhythm. ABDOMEN: Soft, non-tender and non-distended. EXTREMITIES: Nonpitting BLE edema. NEUROLOGIC: No focal neurological deficits. SKIN: Warm, dry. Labs/Diagnostic Data Labs Test 08/22/25 21:38 08/22/25 16:11 08/22/25 15:57 08/22/25 11:21 Range/Units Prothrombin Time 11.2 9.3-11.8 sec Prothrombin Time INR 1.06 0.9-1.15 Activated Partial Thromboplast Time 105.3 *H 24.5-34.5 SEC Blood Gas Specimen Type Arterial Blood Gas Sample Site Right radial Blood Gas Patient Temperature 37.0 Arterial Blood Date Drawn [id number] Arterial Blood pH 7.461 H 7.350-7.450 Arterial Blood Partial Pressure CO2 28.7 L 35.0-48.0 mmHg Arterial Blood Partial Pressure O2 63.6 L 83.0-108.0 mmHg Arterial Blood HCO3 20.0 L 21.0-28.0 mmol/L Arterial Blood Oxygen Saturation 92.2 L 94.0-98.0 % Arterial Blood Base Excess -2.4 L -2.0-3.0 mmol/L Arterial Blood Oxyhemoglobin 90.9 L 94.0-98.0 % Arterial Blood Carboxyhemoglobin 1.0 0.5-1.5 % Arterial Blood Methemoglobin 0.4 0.0-1.5 % Pradip Test Yes Blood Gas Total Hemoglobin 15.30 13.5-17.5 g/dL Blood Gas Modality Nasal cannula FiO2 % 36.0 Fibrinogen 387 H 177-375 mg/dL D-Dimer, Quantitative 7.16 H 0.0-0.49 mg/L FEU Troponin I High Sensitivity 784 *H </=54 ng/L Triglycerides Level 155 H < 150 mg/dL Cholesterol Level 147 < 200 mg/dL LDL Cholesterol 96 < 100 mg/dL HDL Cholesterol 39 L 40-59 mg/dL Thyroid Stimulating Hormone (TSH) 4.11 0.55-4.78 uIU/mL Test 08/22/25 08:33 Range/Units White Blood Count 11.9 H 4.4-10.8 10^3/uL Red Blood Count 5.46 4.5-5.90 10^6/uL Hemoglobin 15.4 13.5-17.5 g/dL Hematocrit 46.0 41.0-53.0 % Mean Corpuscular Volume 84.2 80.0-100.0 fL Mean Corpuscular Hemoglobin 28.2 28.0-32.0 pg Mean Corpuscular Hemoglobin Concent 33.5 32.0-36.0 g/dL Red Cell Distribution Width 13.9 11.8-14.3 % Platelet Count 250 140-450 10^3/uL Mean Platelet Volume 7.5 6.9-10.8 fL Neutrophils (%) (Auto) 75.7 37.0-80.0 % Lymphocytes (%) (Auto) 15.8 10.0-50.0 % Monocytes (%) (Auto) 6.4 0.0-12.0 % Eosinophils (%) (Auto) 1.6 0.0-7.0 % Basophils (%) (Auto) 0.5 0.0-2.0 % Neutrophils # (Auto) 9.0 H 1.6-8.6 10 ^3/uL Lymphocytes # (Auto) 1.9 0.4-5.4 10 ^3/uL Monocytes # (Auto) 0.8 0-1.3 10 ^3/uL Eosinophils # (Auto) 0.2 0-0.8 10 ^3/uL Basophils # (Auto) 0.1 0-0.2 10 ^3/uL Nucleated Red Blood Cells 0.1 % Sodium Level 139 136-145 mmol/L Potassium Level 4.3 3.5-5.1 mmol/L Chloride Level 103 98-107 mmol/L Carbon Dioxide Level 26 20-31 mmol/L Anion Gap 10 5-15 Blood Urea Nitrogen 15 9-23 mg/dL Creatinine 1.38 H 0.700-1.30 mg/dL Glomerular Filtration Rate Calc 65 >90 mL/min BUN/Creatinine Ratio 10.9 10.0-20.0 Serum Glucose 201 H 74-106 mg/dL Hemoglobin A1c 6.8 H <5.7 % A1C Calcium Level 9.0 8.7-10.4 mg/dL Assessment Saddle PE with RV strain (S1Q3T3 pattern). Pulmonary hypertension secondary to above. NSTEMI type 2 secondary to above. Rule out lower extremity DVT. Rule out hypercoagulability. Methamphetamine use. Obesity. Plan/Recommendation I agree with your ongoing assessment and care of plan. Patient has been seen by Shruthi Piña NP on my behalf. We have discussed the plan with the patient. A preliminary transthoracic echocardiogram revealed an optimal LVEF with [id number] pulmonary hypertension including RVSP at [address] Boone (radiologist) offered the patient a pulmonary thrombectomy for which the patient agrees which is tentatively scheduled for 2024. In the meantime, initiate STAT heparin drip for PE per pharmacy protocol. Obtain a lower extremity venous US to rule out DVT as well as an ABG. Follow-up on hypercoagulability panel studies given familial history of VTE and no acquired causes found at this time. Post-interventional procedures, initiate DOAC therapy per PE/DVT protocol. Additional plan as per the hospital course. Plan discussed with: Patient NYHA Physical activity limitations: NA Date of Service: Aug 22, 2025 Billing Provider: KARL MINOR MD Cardiology Common Codes: 72476-[facility], [id number] CARE 30-74 MIN KARL MINOR MD Aug 22, 2025 23:07
[2025-08-23] VITALS (14 sets, daily range): BP systolic 97–115; BP diastolic 32–77; PULSE 78–103; RESP 15–24; TEMP 97.6–98.3; O2SAT 90–100
[2025-08-23] MEDS ORDERED: HEPARIN DRIP/D5W 100UNITS/ML 250 ML IV SCH
[2025-08-23] MEDS: HEPARIN DRIP/D5W 100UNITS/ML 250 ML IV SCH ×2 (00:05→22:18)
[2025-08-23 07:37] LABS: Hematocrit 40.6 % (41.0-53.0); Hemoglobin 13.9 g/dL (13.5-17.5); Mean Corpuscular Hemoglobin 28.8 pg (28.0-32.0); Mean Corpuscular Volume 83.9 fL (80.0-100.0); Nucleated Red Blood Cells % 0.0 %
[2025-08-23 07:54] LABS: INR 1.05 (0.9-1.15); Partial Thromboplastin Time 68.0 SEC (24.5-34.5); Prothrombin Time 11.1 sec (9.3-11.8)
[2025-08-23 07:58] LABS: Albumin 3.5 g/dL (3.2-4.8); Alkaline Phosphatase 90 U/L (46-116); Anion Gap 11 (5-15); BUN/Creatinine Ratio 16.5 (10.0-20.0); Blood Urea Nitrogen 16 mg/dL (9-23); Carbon Dioxide 22 mmol/L (20-31); Potassium 4.1 mmol/L (3.5-5.1); Sodium 141 mmol/L (136-145); Total Protein 6.3 g/dL (5.7-8.2)
[2025-08-23 07:59] LABS: Bilirubin, Total 0.5 mg/dL (0.2-1.0)
[2025-08-23 08:03] LABS: Alanine Aminotransferase 89 U/L (7-40); Calcium 8.5 mg/dL (8.7-10.4); Chloride 108 mmol/L (98-107); Glucose 154 mg/dL (74-106)
[2025-08-23] MEDS: IODIXANOL 320MG/ML 100ML BTL IV ONE ×2 (12:36→12:38)
[2025-08-23] MEDS: HEPARIN IN NS 1000Units/500mL 1,500 ML ONE (12:36)
[2025-08-23] MEDS: fentaNYL CITRATE 100 MCG/2 ML VL ONE (12:53)
[2025-08-23] MEDS: HEPARIN SODIUM (PORCINE) 5000 UNITS/ML 1ML VIAL ONE (12:53)
[2025-08-23] MEDS: LIDOCAINE 2%HCL (LOCAL ANESTH.) INJ 20ML MDV ONE (12:54)
[2025-08-23] MEDS: MIDAZOLAM HCL 2MG/2ML 2ml VIAL (1mg/ml) ONE (12:54)
[2025-08-23] MEDS: HYDROmorphone HCL 2 MG/ML VL/or syr ONE (14:04)
--- NOTE | 2025-08-23 14:50 | DVHPN2 ---
Subjective Patient continues to have shortness of breath Reviewed: Care Plan, H&P, Labs Changes from previous H/P or p: No Changes Eyes: No Pain, No Vision change, No Conjunctivae inflammation, No Eyelid inflammation, No Other, No Redness ENT: No Ear pain, No Ear discharge, No Nose pain, No Nose discharge, No Nose congestion, No Mouth pain, No Mouth swelling, No Throat pain, No Throat swelling, No Other Cardiovascular: Chest Pain (pressure); No Palpitations, No Orthopnea, No Paroxysmal Noc. Dyspnea, No Edema, No Lt Headedness, No Other Respiratory: No Cough, No Dry; Shortness of breath, SOB with excertion; No Wheezing, No Hemoptysis, No Pleuritic Pain, No Sputum, No Other Gastrointestinal: No Nausea, No Vomiting, No Abdominal Pain, No Diarrhea, No Constipation, No Melena, No Hematochezia, No Other Genitourinary: No Dysuria, No Frequency, No Incontinence, No Hematuria, No Retention, No Other Musculoskeletal: No other, No neck pain, No shoulder pain, No arm pain, No back pain, No hand pain, No leg pain, No foot pain Skin: No Rash, No Lesions, No Jaundice, No Bruising, No Other Objective Vitals Vital Signs Date Time Temp Pulse Resp B/P (MAP) Pulse Ox O2 Delivery O2 Flow Rate FiO2 08/23/25 12:38 97.6 89 18 103/74 (84) 96 97.6 08/23/25 07:45 Oxymizer 8 N/A Intake/Output Intake and Output 08/23/25 06:59 Intake Total 268 ml Output Total 0 ml Balance 268 ml Intake Oral 0 ml IV Total 268 ml Output Urine Total 0 ml General Appearance: Alert, Oriented X3, Cooperative, moderate distress HEENT: Atraumatic, PERRLA Lungs: Clear to auscultation, Normal air movement, Other Cardiovascular: Normal S1, Normal S2 Abdomen: Normal bowel sounds, Soft, No tenderness, No hepatospenomegaly Musculoskeletal: Normal sensory function, Normal motor function Neuro: Normal speech Skin: Dry, Intact Psych/Mental Status: Mental status NL, Mood NL Medications Current Medications Medications Dose Ordered Sig/John Route Start Time Stop Time Status Last Admin Dose Admin Acetaminophen/ Hydrocodone Bitart 1 tab Q4HP PRN PO 08/22/25 11:15 Ondansetron HCl 4 mg Q4HP PRN IV 08/22/25 11:15 Docusate Sodium 100 mg BIDPRN PRN PO 08/22/25 11:15 Acetaminophen 650 mg Q6HP PRN PO 08/22/25 11:15 Nitroglycerin 0.4 mg Q5MINP PRN SL 08/22/25 11:15 Morphine Sulfate 2 mg Q30M PRN IV 08/22/25 11:15 Sodium Chloride 1,000 ml @ 50 mls/hr Q20H IV 08/22/25 13:30 08/22/25 15:08 50 MLS/HR Heparin Sodium/ Dextrose 250 ml @ 15 mls/hr [id number] IV 08/23/25 00:00 08/23/25 07:38 15 MLS/HR Laboratory Results Laboratory Tests 08/23/25 06:54 Chemistry Test 08/23/25 06:54 Albumin 3.5 g/dL (3.2-4.8) Calcium Level 8.5 mg/dL (8.7-10.4) L Total Protein 6.3 g/dL (5.7-8.2) Coagulation Test 08/22/25 15:57 08/22/25 21:38 08/23/25 06:54 Fibrinogen 387 mg/dL (177-375) H Prothrombin Time 11.2 sec (9.3-11.8) 11.1 sec (9.3-11.8) Prothrombin Time Diluted Pending Dilute PT Confirmation Ratio Pending Prothrombin Time INR 1.06 (0.9-1.15) 1.05 (0.9-1.15) Activated Partial Thromboplast Time 105.3 SEC (24.5-34.5) *H 68.0 SEC (24.5-34.5) H Thrombin Time Pending Dilute Jorje Viper Venom (Lupus) Pending Lupus Anticoagulant Interpretation Pending Protein C Antigen Pending Protein S Antigen Pending Free Protein S Antigen Pending Anti-Thrombin III Antigen Pending Factor V Leiden Mutation Pending LFT Test 08/23/25 06:54 Alanine Aminotransferase (ALT) 89 U/L (7-40) H Alkaline Phosphatase 90 U/L (46-116) Aspartate Amino Transferase (AST) 44 U/L (13-40) H Total Bilirubin 0.5 mg/dL (0.2-1.0) Blood Gas Results Test 08/22/25 16:11 Arterial Blood pH 7.461 (7.350-7.450) FiO2 % 36.0 Labs and/or images reviewed: Labs reviewed by me, Image(s) reviewed by me Assessment/Plan Assessment/Plan Impression: -acute hypoxic respiratory failure -saddle pulmonary embolism with cor pulmonale -obesity -acute DVT -methamphetamine abuse Plan: -continue anticoagulation -plans for pulmonary thrombectomy -prophylaxis -O2 supplementation to keep saturation greater than 92% -coagulopathy panel -repeat labs in a.m. Total time spent with patient discussing and formulating plan of care: 35 minutes. This medical document was created using an electronic medical record system with [employer] dictation system. Although this document has been carefully reviewed, there may still be some phonetic and typographical errors. These areas are purely typographical due to imperfections of the software programs, and do not reflect any compromise in the patient's medical care. Plan discussed with: Patient, Other (Rn) My Orders Orders - JOSH SCRUGGS NP Procedure Category Date Status Time Perc.Arterial XY 08/23/25 Taken Thrombectomy 14:31 Basic Metabolic Panel LAB 08/24/25 Verified 04:00 Date of Service: Aug 23, 2025 Billing Provider: JOSH SCRUGGS NP Common Visit Codes: [id number] CARE 30-74 MIN JOSH SCRUGGS NP Aug 23, 2025 14:50
--- NOTE | 2025-08-23 15:22 | DVH ---
XY PERC.ARTERIAL THROMBECTOMY, HISTORY: PULMONARY THROMBECTOMY due to bilateral PE, saddle PE, RV dysfunction, elevated troponins to 700. PROCEDURE: Informed consent was obtained. The patient was placed on the fluoroscopic table in supine position. The right groin was prepped with chlorhexidine which was allowed to dry and draped in the u sual sterile fashion. Time out was performed. Following administration of 1% local lidocaine, the com mon femoral vein was accessed with a micropuncture set under ultrasound guidance, and an image docume nting patency sent to PACS. A 6 [place] vascular sheath was placed into the iliac vein and a venogram performed. Over a glide advantage wire, a 4 Fr angled pigtail catheter was placed into the main PA an d pressures were measures. A pulmonary angiogram was obtained. The wire was placed into the right PA and exchanged over a MPA catheter for an amplatz wire. The 6 Fr sheath was exchanged for a 26 Fr Inar i sheath placed into the IVC. Then the 24 Fr Inari aspiration catheter was positioned in the right PA and multiple aspiration was performed with blood returned to the patient via Flow Saver. ACT was obt ained and a total of 3000 units of heparin given IV. Then the aspiration catheter was repositioned in to the left PA and pulmonary angiogram obtained. Multiple aspiration was performed. A completion pulm onary angiogram was performed. Completion pressures were measured. The introducer sheath was removed and the venotomy closed with manual compression and a Flow Stasis device. No immediate complication was identified. DAP 3182 FLUOROSCOPY TIME: 9.3 minutes. CONTRAST USED: 110 mL Isovue 300. SEDATION: Dr. Murphy Boone was personally responsible for the administration of moderate sedation during the procedure performed, including the use of an independent trained observer who had no other duties during the procedure. The drugs utilized were IV fentanyl and versed (see nursing log for details). The total time of supervision by the attending physician was approximately 90 minutes. FINDINGS: Large thrombus burden seen bilaterally in the pulmonary arteries which were significantly r educed with aspiration thrombectomy. Pulmonary artery pressures: Pre: 70/26/40 Post: 54/9/32 IMPRESSION: Large thrombus burden seen bilaterally in the pulmonary arteries which were significantly reduced wit h aspiration thrombectomy with reduction in pulmonary artery pressure. PLAN: Resume heparin drip. will remove flowstasis device tomorrow.
[2025-08-23 15:32] LABS: INR 1.07 (0.9-1.15); Partial Thromboplastin Time 61.5 SEC (24.5-34.5); Prothrombin Time 11.3 sec (9.3-11.8)
--- NOTE | 2025-08-23 21:24 | DVHPN2 ---
Progress Note - Dictate Date Seen: Aug 23, 2025 Medical Necessity Reason Pt with a Central, PICC or Fol: No Subjective Patient was seen and evaluated in follow up. Patient is c/o SOB. The patient is on 8 L Oxymizer. Patient underwent PE thrombectomy which revealed large thrombus burden seen bilaterally in the pulmonary arteries which were significantly reduced with aspiration thrombectomy with reduction in pulmonary artery pressure. Patient was resumes on heparin drip . WBC 11.1, CA 8.5, AST 44, ALT 89. Telemetry reviewed. vital signs Vital Sign Date Time Temp Pulse Resp B/P (MAP) Pulse Ox O2 Delivery O2 Flow Rate FiO2 08/23/25 17:00 98.3 85 16 115/75 (88) 94 98.3 08/23/25 07:45 Oxymizer 8 N/A Total Intake and Output 08/22/25 08/22/25 08/23/25 14:59 22:59 06:59 Intake Total 268 ml 0 ml Output Total 0 ml Balance 268 ml 0 ml medications Current Medications Medications Dose Ordered Sig/John Route Start Time Stop Time Status Last Admin Dose Admin Acetaminophen/ Hydrocodone Bitart 1 tab Q4HP PRN PO 08/22/25 11:15 Ondansetron HCl 4 mg Q4HP PRN IV 08/22/25 11:15 Docusate Sodium 100 mg BIDPRN PRN PO 08/22/25 11:15 Acetaminophen 650 mg Q6HP PRN PO 08/22/25 11:15 Nitroglycerin 0.4 mg Q5MINP PRN SL 08/22/25 11:15 Morphine Sulfate 2 mg Q30M PRN IV 08/22/25 11:15 Sodium Chloride 1,000 ml @ 50 mls/hr Q20H IV 08/22/25 13:30 08/22/25 15:08 50 MLS/HR Heparin Sodium/ Dextrose 250 ml @ 15 mls/hr [id number] IV 08/23/25 00:00 08/23/25 07:38 15 MLS/HR objective GENERAL: Alert and oriented x 3. No acute distress. Obese. EYES: PERRL, EOMI. Anicteric. HENT: Moist mucous membranes. LUNGS: Clear to auscultation bilaterally. CARDIOVASCULAR: Regular rate and rhythm. ABDOMEN: Soft, non-tender and non-distended. EXTREMITIES: Nonpitting BLE edema. NEUROLOGIC: No focal neurological deficits. SKIN: Warm, dry. laboratory and microbiology Laboratory Tests 08/23/25 06:54 Test 08/23/25 06:54 Range/Units Serum Glucose 154 H 74-106 mg/dL Problem List Saddle PE with RV strain (S1Q3T3 pattern). Pulmonary hypertension secondary to above. NSTEMI type 2 secondary to above. Rule out lower extremity DVT. Rule out hypercoagulability. Methamphetamine use. Obesity. Assessment/Plan Continued all current supportive medical care. Morphine and [place] for pain management. Heparin drip per pharmacy. Nitro SL. Additional plan as per the hospital course. Plan discussed with: Patient KARL MINOR MD Aug 23, 2025 19:56
[2025-08-23 22:01] LABS: INR 1.03 (0.9-1.15); Partial Thromboplastin Time 43.3 SEC (24.5-34.5); Prothrombin Time 10.9 sec (9.3-11.8)
[2025-08-23] MEDS: ACETAMINOPHEN 325 MG TAB PO PRN (22:03)
--- NOTE | 2025-08-23 22:09 | CONS ---
Pharmacy Clinical Information: INCREASE HEPARIN DRIP RATE TO 1700 UNITS/HR PER APTT OF 43.3 NEXT APTT DRAW SCHEDULED FOR 08/24 @ 0400 PER RX PROTOCOL ARVIND ART CONFIRMED AND READ BACK Etta Argueta PHARMACIST Aug 23, 2025 22:09
[2025-08-24] VITALS (8 sets, daily range): BP systolic 100–108; BP diastolic 66–72; PULSE 75–93; RESP 18–21; TEMP 97.1–98.7; O2SAT 96–99
[2025-08-24 00:36] LABS: Urine Protein, UAD Negative (Negative)
[2025-08-24 04:46] LABS: Hematocrit 37.0 % (41.0-53.0); Hemoglobin 12.6 g/dL (13.5-17.5); Mean Corpuscular Hemoglobin 28.7 pg (28.0-32.0); Mean Corpuscular Volume 84.0 fL (80.0-100.0); Nucleated Red Blood Cells % 0.1 %
[2025-08-24 04:47] LABS: Chloride 106 mmol/L (98-107); Potassium 3.8 mmol/L (3.5-5.1); Sodium 140 mmol/L (136-145)
[2025-08-24 04:48] LABS: Anion Gap 10 (5-15); Carbon Dioxide 24 mmol/L (20-31); INR 1.08 (0.9-1.15); Partial Thromboplastin Time 67.8 SEC (24.5-34.5); Prothrombin Time 11.4 sec (9.3-11.8)
[2025-08-24 04:50] LABS: Calcium 8.2 mg/dL (8.7-10.4)
[2025-08-24 04:53] LABS: BUN/Creatinine Ratio 12.2 (10.0-20.0); Blood Urea Nitrogen 11 mg/dL (9-23)
[2025-08-24 04:55] LABS: Glucose 121 mg/dL (74-106)
--- NOTE | 2025-08-24 10:38 | DVHPN2 ---
Subjective Patient continues to have shortness of breath Reviewed: Care Plan, H&P, Labs Changes from previous H/P or p: No Changes Eyes: No Pain, No Vision change, No Conjunctivae inflammation, No Eyelid inflammation, No Other, No Redness ENT: No Ear pain, No Ear discharge, No Nose pain, No Nose discharge, No Nose congestion, No Mouth pain, No Mouth swelling, No Throat pain, No Throat swelling, No Other Cardiovascular: Chest Pain (pressure); No Palpitations, No Orthopnea, No Paroxysmal Noc. Dyspnea, No Edema, No Lt Headedness, No Other Respiratory: No Cough, No Dry; Shortness of breath, SOB with excertion; No Wheezing, No Hemoptysis, No Pleuritic Pain, No Sputum, No Other Gastrointestinal: No Nausea, No Vomiting, No Abdominal Pain, No Diarrhea, No Constipation, No Melena, No Hematochezia, No Other Genitourinary: No Dysuria, No Frequency, No Incontinence, No Hematuria, No Retention, No Other Musculoskeletal: No other, No neck pain, No shoulder pain, No arm pain, No back pain, No hand pain, No leg pain, No foot pain Skin: No Rash, No Lesions, No Jaundice, No Bruising, No Other Objective Vitals Vital Signs Date Time Temp Pulse Resp B/P (MAP) Pulse Ox O2 Delivery O2 Flow Rate FiO2 08/24/25 09:00 97.9 89 18 102/66 (78) 97 97.9 08/23/25 20:00 Room Air* 0 21 Intake/Output Intake and Output 08/24/25 07:00 Intake Total 622.5 ml Output Total 1315 ml Balance -692.5 ml Intake Oral 465 ml IV Total 157.5 ml Output Urine Total 1315 ml # Voids 1 General Appearance: Alert, Oriented X3, Cooperative, moderate distress HEENT: Atraumatic, PERRLA Lungs: Clear to auscultation, Normal air movement, Other Cardiovascular: Normal S1, Normal S2 Abdomen: Normal bowel sounds, Soft, No tenderness, No hepatospenomegaly Musculoskeletal: Normal sensory function, Normal motor function Neuro: Normal speech Skin: Dry, Intact Psych/Mental Status: Mental status NL, Mood NL Medications Current Medications Medications Dose Ordered Sig/John Route Start Time Stop Time Status Last Admin Dose Admin Acetaminophen/ Hydrocodone Bitart 1 tab Q4HP PRN PO 08/22/25 11:15 Ondansetron HCl 4 mg Q4HP PRN IV 08/22/25 11:15 Docusate Sodium 100 mg BIDPRN PRN PO 08/22/25 11:15 Acetaminophen 650 mg Q6HP PRN PO 08/22/25 11:15 08/23/25 22:03 650 MG Nitroglycerin 0.4 mg Q5MINP PRN SL 08/22/25 11:15 Morphine Sulfate 2 mg Q30M PRN IV 08/22/25 11:15 Sodium Chloride 1,000 ml @ 50 mls/hr Q20H IV 08/22/25 13:30 08/22/25 15:08 50 MLS/HR Heparin Sodium/ Dextrose 250 ml @ 17 mls/hr [id number] IV 08/23/25 22:15 08/24/25 00:50 17 MLS/HR Laboratory Results Laboratory Tests 08/24/25 03:49 Chemistry Test 08/24/25 03:49 Calcium Level 8.2 mg/dL (8.7-10.4) L Coagulation Test 08/23/25 14:55 08/23/25 21:09 08/24/25 03:49 08/24/25 09:50 Prothrombin Time 11.3 sec (9.3-11.8) 10.9 sec (9.3-11.8) 11.4 sec (9.3-11.8) Pending Prothrombin Time INR 1.07 (0.9-1.15) 1.03 (0.9-1.15) 1.08 (0.9-1.15) Pending Activated Partial Thromboplast Time 61.5 SEC (24.5-34.5) H 43.3 SEC (24.5-34.5) H 67.8 SEC (24.5-34.5) H Pending Urinalysis Test 08/24/25 00:00 Urine Color Yellow (Yellow) Urine Clarity Clear (Clear) Urine pH 6.0 (5.0-9.0) Urine Specific [place] 1.037 (1.001-1.035) Urine Protein Negative (Negative) Urine Ketones Negative (Negative) Urine Blood Negative /uL (Negative) Urine Nitrite Negative (Negative) Urine Bilirubin Negative (Negative) Urine Urobilinogen 2 mg/dL (Negative) H Urine Leukocyte Esterase 3+ /uL (Negative) Urine RBC 4 /hpf (0 - 3) Urine Microscopic WBC 47 /HPF (0-3) H Urine Squamous Epithelial Cells Few /hpf (<5) Urine Bacteria None seen /hpf (None Seen) Urine Glucose Normal mg/dL (Normal) Labs and/or images reviewed: Labs reviewed by me, Image(s) reviewed by me Assessment/Plan Assessment/Plan Impression: -acute hypoxic respiratory failure -saddle pulmonary embolism with cor pulmonale -obesity -acute DVT -methamphetamine abuse Plan: Events: Stop heparin drip this evening, transitioned to Eliquis -prophylaxis -O2 supplementation to keep saturation greater than 92% -coagulopathy panel : Pending -education given to the patient regarding lifestyle modification in the need to stop using amphetamines. Total time spent with patient discussing and formulating plan of care: 35 minutes. Total time spent with patient and family regarding advance care plannin minutes. This medical document was created using an electronic medical record system with [employer] dictation system. Although this document has been carefully reviewed, there may still be some phonetic and typographical errors. These areas are purely typographical due to imperfections of the software programs, and do not reflect any compromise in the patient's medical care. Plan discussed with: Patient, Other (RN) My Orders Orders - JOSH SCRUGGS NP Procedure Category Date Status Time Perc.Arterial XY 08/23/25 Resulted Thrombectomy 14:31 Drug Screen LAB 08/24/25 In Process 10:00 Apixaban (Eliquis) PHA 08/24/25 Transmitted 22:00 Apixaban (Eliquis) PHA 08/24/25 Transmitted 22:00 Date of Service: Aug 24, 2025 Billing Provider: JOSH SCRUGGS NP Common Visit Codes: [id number] INP/OBS CARE(HIGH) JOSH SCRUGGS NP Aug 24, 2025 10:38
[2025-08-24 10:54] LABS: INR 1.07 (0.9-1.15); Partial Thromboplastin Time 67.7 SEC (24.5-34.5); Prothrombin Time 11.3 sec (9.3-11.8)
--- NOTE | 2025-08-24 11:03 | CONS ---
Pharmacy Clinical Information: HEPARIN DRIP, PULMONARY EMBOLISM PROTOCOL @0950 APTT 67.7 - NO BOLUS / NO CHANGE NEXT APTT DRAW SCHEDULED @1600 PER RX PROTOCOL CONFIRMED AND READ BACK WITH ROMARIO COLIN [facility] RESIDENT Aug 24, 2025 11:03
[2025-08-24 11:11] LABS: Amphetamine Screen, Urine Pos (NEGATIVE); Barbiturate Scree,Urine Neg (NEGATIVE); Benzodiazephine Screen, Urine Pos (NEGATIVE); Cannabinoid Screen, Urine Neg (NEGATIVE); Cocaine Screen, Urine Neg (NEGATIVE); Opiate Scree,Urine Neg (NEGATIVE); Phencyclidine Screen, Urine Neg (NEGATIVE)
[2025-08-24 16:45] LABS: INR 1.05 (0.9-1.15); Partial Thromboplastin Time 51.2 SEC (24.5-34.5); Prothrombin Time 11.1 sec (9.3-11.8)
--- NOTE | 2025-08-24 16:57 | CONS ---
Pharmacy Clinical Information: HEPARIN DRIP, PULMONARY EMBOLISM PROTOCOL @1610 APTT 51.2 - NO BOLUS / NO CHANGE 3 CONSECUTIVE APPT THERAPEUTIC => APTT EVERY 24HRS NEXT APTT DRAW SCHEDULED @0500 PER RX PROTOCOL CONFIRMED AND READ BACK WITH ROMARIO COLIN [facility] RESIDENT Aug 24, 2025 16:57
[2025-08-24] MEDS: HEPARIN DRIP/D5W 100UNITS/ML 250 ML IV SCH (17:20)
[2025-08-24] MEDS: APIXABAN 5 MG TAB PO SCH (22:00)
--- NOTE | 2025-08-24 23:48 | DVHPN2 ---
Progress Note - Dictate Date Seen: Aug 24, 2025 Medical Necessity Reason Pt with a Central, PICC or Fol: No Subjective Patient was seen and evaluated in follow up. Patient reports improvement in SOB. Patient stable on RA. Patient will transition from Heparin drip to Eliquis. Telemetry reviewed. vital signs Vital Sign Date Time Temp Pulse Resp B/P (MAP) Pulse Ox O2 Delivery O2 Flow Rate FiO2 08/24/25 09:00 97.9 89 18 102/66 (78) 97 97.9 08/24/25 08:00 Room Air* 0 21 Total Intake and Output 08/23/25 08/23/25 08/24/25 15:00 23:00 07:00 Intake Total 7.5 ml 465 ml 150 ml Output Total 915 ml 400 ml Balance 7.5 ml -450 ml -250 ml medications Current Medications Medications Dose Ordered Sig/John Route Start Time Stop Time Status Last Admin Dose Admin Acetaminophen/ Hydrocodone Bitart 1 tab Q4HP PRN PO 08/22/25 11:15 Ondansetron HCl 4 mg Q4HP PRN IV 08/22/25 11:15 Docusate Sodium 100 mg BIDPRN PRN PO 08/22/25 11:15 Acetaminophen 650 mg Q6HP PRN PO 08/22/25 11:15 08/23/25 22:03 650 MG Nitroglycerin 0.4 mg Q5MINP PRN SL 08/22/25 11:15 Morphine Sulfate 2 mg Q30M PRN IV 08/22/25 11:15 Apixaban 10 mg BID PO 08/24/25 22:00 08/31/25 21:59 Apixaban 5 mg BID PO 08/31/25 22:00 Heparin Sodium/ Dextrose 250 ml @ 17 mls/hr [id number] IV 08/24/25 12:45 08/24/25 21:59 objective GENERAL: Alert and oriented x 3. No acute distress. Obese. EYES: PERRL, EOMI. Anicteric. HENT: Moist mucous membranes. LUNGS: Clear to auscultation bilaterally. CARDIOVASCULAR: Regular rate and rhythm. ABDOMEN: Soft, non-tender and non-distended. EXTREMITIES: Nonpitting BLE edema. NEUROLOGIC: No focal neurological deficits. SKIN: Warm, dry. laboratory and microbiology Laboratory Tests 08/24/25 03:49 Test 08/24/25 03:49 Range/Units Serum Glucose 121 H 74-106 mg/dL Problem List Saddle PE with RV strain (S1Q3T3 pattern). Pulmonary hypertension secondary to above. NSTEMI type 2 secondary to above. Rule out lower extremity DVT. Rule out hypercoagulability. Methamphetamine use. Obesity. Assessment/Plan Continued all current supportive medical care. Nitro SL. Heparin drip per pharmacy. Morphine and [place] for pain management. Additional plan as per the hospital course. Plan discussed with: Patient KARL MINOR MD Aug 24, 2025 13:09
[2025-08-25 01:00] VITALS: BP 98/66; PULSE 86; RESP 18; TEMP 97.7; O2SAT 97
[2025-08-25 04:58] VITALS: BP 95/66; PULSE 68; RESP 18; TEMP 97.6; O2SAT 98
[2025-08-25 06:17] LABS: Hematocrit 39.5 % (41.0-53.0); Hemoglobin 13.5 g/dL (13.5-17.5); Mean Corpuscular Hemoglobin 28.8 pg (28.0-32.0); Mean Corpuscular Volume 84.0 fL (80.0-100.0); Nucleated Red Blood Cells % 0.1 %
[2025-08-25 06:36] LABS: INR 1.11 (0.9-1.15); Partial Thromboplastin Time 33.3 SEC (24.5-34.5); Prothrombin Time 11.6 sec (9.3-11.8)
[2025-08-25 08:00] VITALS: PULSE 79
[2025-08-25 09:00] VITALS: BP 103/65; PULSE 81; RESP 20; TEMP 97.2; O2SAT 96
[2025-08-25 13:00] VITALS: BP_SYST 163; BP_SYST 96; BP_DIAS 43; BP_DIAS 84; PULSE 84; RESP 20; TEMP 97.7; O2SAT 94
[2025-08-25] MEDS ORDERED: APIX5TAB PO (14:11)
--- NOTE | 2025-08-25 14:18 | DVHDS2 ---
Discharge Summary Date of Admission Aug 22, 2025 at 11:13 Date of Discharge: Aug 25, 2025 Admitting Diagnosis Acute pulmonary embolus Labs/Diagnostic Data: Laboratory Results Test 08/25/25 05:17 08/24/25 03:49 08/24/25 00:00 08/23/25 06:54 White Blood Count 8.3 10^3/uL (4.4-10.8) Red Blood Count 4.70 10^6/uL (4.5-5.90) Hemoglobin 13.5 g/dL (13.5-17.5) Hematocrit 39.5 % (41.0-53.0) Mean Corpuscular Volume 84.0 fL (80.0-100.0) Mean Corpuscular Hemoglobin 28.8 pg (28.0-32.0) Mean Corpuscular Hemoglobin Concent 34.2 g/dL (32.0-36.0) Red Cell Distribution Width 14.0 % (11.8-14.3) Platelet Count 221 10^3/uL (140-450) Mean Platelet Volume 8.1 fL (6.9-10.8) Neutrophils (%) (Auto) 62.2 % (37.0-80.0) Lymphocytes (%) (Auto) 23.1 % (10.0-50.0) Monocytes (%) (Auto) 8.0 % (0.0-12.0) Eosinophils (%) (Auto) 6.1 % (0.0-7.0) Basophils (%) (Auto) 0.6 % (0.0-2.0) Neutrophils # (Auto) 5.2 10 ^3/uL (1.6-8.6) Lymphocytes # (Auto) 1.9 10 ^3/uL (0.4-5.4) Monocytes # (Auto) 0.7 10 ^3/uL (0-1.3) Eosinophils # (Auto) 0.5 10 ^3/uL (0-0.8) Basophils # (Auto) 0 10 ^3/uL (0-0.2) Nucleated Red Blood Cells 0.1 % Prothrombin Time 11.6 sec (9.3-11.8) Prothrombin Time INR 1.11 (0.9-1.15) Activated Partial Thromboplast Time 33.3 SEC (24.5-34.5) Sodium Level 140 mmol/L (136-145) Potassium Level 3.8 mmol/L (3.5-5.1) Chloride Level 106 mmol/L (98-107) Carbon Dioxide Level 24 mmol/L (20-31) Anion Gap 10 (5-15) Blood Urea Nitrogen 11 mg/dL (9-23) Creatinine 0.90 mg/dL (0.700-1.30) Glomerular Filtration Rate Calc 108 mL/min (>90) BUN/Creatinine Ratio 12.2 (10.0-20.0) Serum Glucose 121 mg/dL (74-106) Calcium Level 8.2 mg/dL (8.7-10.4) Urine Color Yellow (Yellow) Urine Clarity Clear (Clear) Urine pH 6.0 (5.0-9.0) Urine Specific [place] 1.037 (1.001-1.035) Urine Protein Negative (Negative) Urine Ketones Negative (Negative) Urine Blood Negative /uL (Negative) Urine Nitrite Negative (Negative) Urine Bilirubin Negative (Negative) Urine Urobilinogen 2 mg/dL (Negative) Urine Leukocyte Esterase 3+ /uL (Negative) Urine RBC 4 /hpf (0 - 3) Urine Microscopic WBC 47 /HPF (0-3) Urine Squamous Epithelial Cells Few /hpf (<5) Urine Bacteria None seen /hpf (None Seen) Urine Glucose Normal mg/dL (Normal) Urine Opiates Screen Neg (NEGATIVE) Urine Fentanyl Screen Pos (NEGATIVE) Urine Barbiturates Screen Neg (NEGATIVE) Urine Phencyclidine Screen Neg (NEGATIVE) Urine Amphetamines Screen Pos (NEGATIVE) Urine Benzodiazepines Screen Pos (NEGATIVE) Urine Cocaine Screen Neg (NEGATIVE) Urine Cannabinoids Screen Neg (NEGATIVE) Total Bilirubin 0.5 mg/dL (0.2-1.0) Aspartate Amino Transferase (AST) 44 U/L (13-40) Alanine Aminotransferase (ALT) 89 U/L (7-40) Alkaline Phosphatase 90 U/L (46-116) Total Protein 6.3 g/dL (5.7-8.2) Albumin 3.5 g/dL (3.2-4.8) Test 08/22/25 21:38 08/22/25 16:11 08/22/25 15:57 08/22/25 11:21 Blood Gas Specimen Type Arterial Blood Gas Sample Site Right radial Blood Gas Patient Temperature 37.0 Arterial Blood Date Drawn [id number] Arterial Blood pH 7.461 (7.350-7.450) Arterial Blood Partial Pressure CO2 28.7 mmHg (35.0-48.0) Arterial Blood Partial Pressure O2 63.6 mmHg (83.0-108.0) Arterial Blood HCO3 20.0 mmol/L (21.0-28.0) Arterial Blood Oxygen Saturation 92.2 % (94.0-98.0) Arterial Blood Base Excess -2.4 mmol/L (-2.0-3.0) Arterial Blood Oxyhemoglobin 90.9 % (94.0-98.0) Arterial Blood Carboxyhemoglobin 1.0 % (0.5-1.5) Arterial Blood Methemoglobin 0.4 % (0.0-1.5) Pradip Test Yes Blood Gas Total Hemoglobin 15.30 g/dL (13.5-17.5) Blood Gas Modality Nasal cannula FiO2 % 36.0 Fibrinogen 387 mg/dL (177-375) D-Dimer, Quantitative 7.16 mg/L FEU (0.0-0.49) Troponin I High Sensitivity 784 ng/L (</=54) Triglycerides Level 155 mg/dL (< 150) Cholesterol Level 147 mg/dL (< 200) LDL Cholesterol 96 mg/dL (< 100) HDL Cholesterol 39 mg/dL (40-59) Thyroid Stimulating Hormone (TSH) 4.11 uIU/mL (0.55-4.78) Test 08/22/25 08:33 Hemoglobin A1c 6.8 % A1C (<5.7) Other Laboratory Tests 08/25/25 05:17 08/24/25 03:49 Brief Hx & Hospital Course: History of Present Illness Yrn Ricks is a 45-year-old male with no significant past medical history other than methamphetamine abuse, who came to the hospital for chest pain and shortness of breath. Patient states he uses methamphetamines about every other day. He states he smoked some last night, began experiencing chest pain that he describes as a pressure with associated shortness of breath about 0400. He called EMS, was evaluated and told everything looked good, but to go to the ER if his symptoms worsened. His symptoms continued prompting him to come to the ER about 0700. He states the left side of his chest hurts when he takes a deep breath. In ER his troponin was elevated and subsequent troponin levels continue to elevate. ECHO and cardiology consult was ordered. On assessment respiratory rate was in the 30's, patient was requiring oxygen at 2L N/C and only saturating at 90-92%. He denies any past history of asthma or COPD. Given his presentation I ordered a D-dimer, then CT angio of chest to R/O PE. CT Angio revealed large saddle PE with right heart strain. Will consult IR for possible thrombectomy and start anticoagulation. Course of hospitalization: Patient underwent successful pulmonary embolus thrombectomy. Patient was weaned off of O2 supplementation. Patient remained hemodynamically stable. Heparin anticoagulation was transitioned to Eliquis. Patient was noted to have nonocclusive DVT to his right popliteal and right posterior tibialis vein. Patient denies any pain to the lower extremity. Long discussion was made with the patient's medical history, for which he states he does not follow up with any primary care provider and has no previous diagnosis. Patient does use amphetamines frequently. Hypercoagulable panel has been placed, with results currently pending. Given patient's stability, he will be discharged home and continued with Eliquis 10 mg p.o. twice a day for a total seven days followed by 5 mg p.o. b.i.d.. He is instructed to call [facility] to obtain his PCP information, and follow up with the discharge Clinic in one week. Patient was agreeable with discharge plan. All questions answered. Physical examination General: Alert and Oriented x3. No acute distress. Well-nourished. Obese Eyes: EOMI. Anicteric. HENT: Moist mucous membranes. Lungs: Clear to auscultation bilaterally. No accessory muscle use. Cardiovascular: Regular rate and rhythm. No murmur. No JVD. Abdomen: Soft, non-tender and non-distended. No palpable masses. Extremities: No edema. Non-tender. Skin: No rashes or lesions. Warm. Neurologic: No focal neurological deficits. CN II-XII grossly intact, but not individually tested. Psychiatric: Cooperative. Appropriate mood and affect. Total time spent with patient discussing and formulating plan of care: 35 minutes. This medical document was created using an electronic medical record system with [employer] system. Although this document has been carefully reviewed, there may still be some phonetic and typographical errors. These areas are purely typographical due to imperfections of the software programs, and do not reflect any compromise in the patient's medical care. Consults/Reason for consult Radiology: Pulmonary embolism Cardiology: Elevated troponin Condition at Discharge: Guarded Final Diagnosis/Problems List Acute pulmonary embolism with cor pulmonale -acute hypoxic respiratory failure -saddle pulmonary embolism with cor pulmonale -obesity -acute DVT -methamphetamine abuse Discharge Disposition: Home Discharge Instruct/Medications Diet: Regular Follow Up/Referral: Discharge Clinic in one week Medications: Eliquis 10 mg p.o. b.i.d. x7 days Eliquis 5 mg p.o. b.i.d. thereafter Scheduled Apixaban Base (Eliquis), 5 MG PO BID Apixaban Base (Eliquis), 10 MG PO BID 36 Discharge Statement: "Patient was advised to return to the ER or call 911 if any headaches, dizziness, shortness of breath, chest pain, abdominal pain, bleeding, fevers, or worsening of medical condition. Patient was counseled about treatment plan, medications, possible side effects, patientverbalized understanding. All questions were answered to the best of my ability. This discharge took greater then 30 minutes in planning, reviewing documentation, counseling the patient, and discussing with other team members." ASSESSMENT ASSESSMENT Assessment Date of Service: Aug 25, 2025 Billing Provider: JOSH SCRUGGS NP Common Visit Codes: [id number] INP/OBS CARE(HIGH) JOSH SCRUGGS NP Aug 25, 2025 14:18
--- NOTE | 2025-08-25 22:17 | DVHPN2 ---
Progress Note - Dictate Date Seen: Aug 25, 2025 Medical Necessity Reason Pt with a Central, PICC or Fol: No Subjective Patient was seen and evaluated in follow up. Patient has no new complaints at this time. Patient denies any cardiac symptoms. Patient is cardiac stable for discharge. Telemetry reviewed. vital signs Vital Sign Date Time Temp Pulse Resp B/P (MAP) Pulse Ox O2 Delivery O2 Flow Rate FiO2 08/25/25 09:00 97.2 81 20 103/65 (78) 96 97.2 08/24/25 20:00 Room Air* 0 21 Total Intake and Output 08/24/25 08/24/25 08/25/25 15:00 23:00 07:00 Intake Total 153.5 ml 2193.5 ml 250 ml Balance 153.5 ml 2193.5 ml 250 ml medications Current Medications Medications Dose Ordered Sig/John Route Start Time Stop Time Status Last Admin Dose Admin Acetaminophen/ Hydrocodone Bitart 1 tab Q4HP PRN PO 08/22/25 11:15 Ondansetron HCl 4 mg Q4HP PRN IV 08/22/25 11:15 Docusate Sodium 100 mg BIDPRN PRN PO 08/22/25 11:15 Acetaminophen 650 mg Q6HP PRN PO 08/22/25 11:15 08/23/25 22:03 650 MG Nitroglycerin 0.4 mg Q5MINP PRN SL 08/22/25 11:15 Morphine Sulfate 2 mg Q30M PRN IV 08/22/25 11:15 Apixaban 10 mg BID PO 08/24/25 22:00 08/31/25 21:59 08/25/25 09:11 10 MG Apixaban 5 mg BID PO 08/31/25 22:00 objective GENERAL: Alert and oriented x 3. No acute distress. Obese. EYES: PERRL, EOMI. Anicteric. HENT: Moist mucous membranes. LUNGS: Clear to auscultation bilaterally. CARDIOVASCULAR: Regular rate and rhythm. ABDOMEN: Soft, non-tender and non-distended. EXTREMITIES: Nonpitting BLE edema. NEUROLOGIC: No focal neurological deficits. SKIN: Warm, dry. laboratory and microbiology Laboratory Tests 08/25/25 05:17 08/24/25 03:49 Test 08/24/25 03:49 Range/Units Serum Glucose 121 H 74-106 mg/dL Problem List Saddle PE with RV strain (S1Q3T3 pattern). Pulmonary hypertension secondary to above. NSTEMI type 2 secondary to above. Rule out lower extremity DVT. Rule out hypercoagulability. Methamphetamine use. Obesity. Assessment/Plan Continued all current supportive medical care. Eliquis. Nitro SL. Morphine and [place] for pain management. Additional plan as per the hospital course. Plan discussed with: Patient KARL MINOR MD Aug 25, 2025 12:55
[2025-08-30 13:07] LABS: PTT-LA 59.9 sec (0.0-43.5); Proten S Antigen Total 96 % (60-150); dRVVT Confirm 1.2 ratio (0.8-1.2)
[2025-08-31] MEDS ORDERED: APIXABAN 5 MG TAB PO SCH (22:00)
== END 2025-08-25 16:30 | disposition home or self-care (01) | DRG 134 ==
LOC: ER 08:04 → OVERFLOW 11:13 → TELE-WESTW 22:06
PROVIDERS: ADMIT Nurse Practitioner Acute Care; ATTEND Nurse Practitioner Acute Care
PROC: 02CR3ZZ Extirpation of Matter from Left Pulmonary Artery, Percutaneous Approach (ICD-10-PCS; principal; 2025-08-23)
PROC: 02CQ3ZZ Extirpation of Matter from Right Pulmonary Artery, Percutaneous Approach (ICD-10-PCS; 2025-08-23)
PROC: B51 Imaging, Veins, Fluoroscopy (ICD-10-PCS; 2025-08-23)
DX: I26.92 Saddle embolus of pulmonary artery without acute cor pulmonale (principal); J96.01 Acute respiratory failure with hypoxia; I27.29 Other secondary pulmonary hypertension; I21.A1 Myocardial infarction type 2; E66.9 Obesity, unspecified; F15.10 Other stimulant abuse, uncomplicated; Z68.39 Body mass index [BMI] 39.0-39.9, adult; Z79.01 Long term (current) use of anticoagulants; Z86.718 Personal history of other venous thrombosis and embolism; Z87.891 Personal history of nicotine dependence
CPT/HCPCS: 36415; 36600; 37184; 71045; 71275; 80048; 80053; 80061; 80307; 81001; 81241; 82805; 83036; 84443; 84484; 85025; 85301; 85302; 85305; 85306; 85379; 85384; 85610; 85613; 85670; 85705; 85730; 85732; 93005; 93306; 93970; 99152; 99291; C1769; C1894; G0378; J2250; Q9967